=== PATIENT | female | born 1980 | race Caucasian/White ===

== ENCOUNTER 2016-12-05 16:00 | Emergency (ER) | payer OTHER ==
[~2016-12-05] VITALS: Ht 152.4 cm; Wt 45.4 kg
[~2016-12-05 16:00] MED LIST: ACET50TA PO; DOCU10CA PO; IBUP80TA PO; MOM30SS PO; MYLI40DR OR; PRENTAB8 PO; VOLTAREN PR
[2016-12-05] MEDS ORDERED: MULT1TAB10 PO (16:13)
[2016-12-05] MEDS ORDERED: KETOROLAC 30 MG/ML VIAL (J1885) IM ONE (16:30)
--- NOTE | 2016-12-05 19:20 | REPUSA ---
CLINICAL HISTORY: Patient felt "pop" while playing soccer. TECHNIQUE: Realtime sonographic images were obtained in multiple projections. COMMENTS: The area of concern was Sscanned in the left posterior ankle. In the region of clinical concern, the re is a soft tissue defect with fluid, likely blood, measuring 8.7 x 9.3 x 15.3 mm. The findings are compatible with Achilles tendon tear. There are no additional abnormalities noted. IMPRESSION: Findings most compatible with Achilles tendon tear. Consider additional evaluation with MRI. Thank you for your kind referral of this patient. We appreciate the opportunity to participate in th is patient's care.
[2016-12-05] MEDS ORDERED: NAPR500T2 PO (19:55)
[2016-12-05] MEDS ORDERED: TYLE325C PO (19:56)
[2016-12-05 20:07] VITALS: BP 113/75
--- NOTE | 2016-12-06 03:27 | REP ---
Clinical: Posterior pain related to the Achilles tendon. Technique: AP, lateral views of the left ankle. Findings: No acute fracture or dislocation. Skeletal structures and joint spaces are intact and normal. Ankle mortise appears stable. No subcutaneous emphysema or radiodense foreign body. Lateral view demonstrates relatively normal soft tissue and fat planes without obvious evidence for ruptured Achilles tendon. Impression: Normal AP and lateral views of the left ankle. No radiographic evidence to suggest ruptured Achilles tendon. If the patient remains symptomatic consider MRI for further investigation. Signed by Sherif Pruitt MD 12/06/2016 03:19 A
== END 2016-12-05 20:26 | disposition home or self-care (01) ==
LOC: M ED 17:00
DX: S86.012A Strain of left Achilles tendon, initial encounter (principal); X58.XXXA Exposure to other specified factors, initial encounter; Y92.89 Other specified places as the place of occurrence of the external cause; Y93.66 Activity, soccer; Y99.8 Other external cause status; Z88.0 Allergy status to penicillin
CPT/HCPCS: 29515; 73600; 76882; 96372; 99283; J1885

== ENCOUNTER → 2019-07-11 | Outpatient (CLI) | payer OTHER ==
[~2019-07-11] MED LIST changes: -ACET50TA PO; +MAPA500T2 PO; +MULT1TAB10 PO; +NAPR-885 PO; +TYLE325C PO
[2019-07-11 17:47] LABS: BASO # 0.1 10^3/uL (0.0-0.2); BASO % 0.7 % (0.0-1.0); EOS # 0.2 10^3/uL (0.0-0.5); EOS % 3.3 % (0.0-3.0); HEMATOCRIT 40.6 % (36.0-47.0); HEMOGLOBIN 13.1 g/dl (12.0-15.5); LYMPH # 2.6 10^3/uL (1.5-5.0); LYMPH % 37.1 % (24.0-44.0); MEAN CORPUSCULAR HEMOGLOBIN 29.5 pg (27.0-33.0); MEAN CORPUSCULAR HGB CONC 32.3 g/dl (32.0-36.5); MEAN CORPUSCULAR VOLUME 91.4 fl (80.0-96.0); MONO # 0.5 10^3/uL (0.0-0.8); MONO % 7.5 % (0.0-5.0); NEUTROPHILS # 3.6 10^3/uL (1.5-8.5); NEUTROPHILS % 51.1 % (36.0-66.0); PLATELET COUNT, AUTOMATED 278 10^3/uL (150-450); RED BLOOD COUNT 4.44 10^6/uL (4.00-5.40)
[2019-07-11 20:15] LABS: FREE T4 0.91 NG/DL (0.76-1.46); THYROID STIMULATING HORMONE 1.55 uIU/ML (0.358-3.740)
[2019-07-12 00:01] LABS: FOLLICLE STIMULATING HORMONE 4.7 mIU/mL; LUTEINIZING HORMONE 9.7 mIU/mL
== END ==
LOC: M PLALAB 15:42
PROVIDERS: ATTEND Advanced Practice Midwife
DX: N92.0 Excessive and frequent menstruation with regular cycle (principal)
CPT/HCPCS: 36415; 83001; 83002; 84439; 84443; 85025; 87624; G0123

== ENCOUNTER → 2019-07-23 | Outpatient (CLI) | payer OTHER ==
--- NOTE | 2019-07-23 13:31 | REP ---
Clinical: Pelvic pain and abnormal menstrual cycles. Technique: Transabdominal pelvic ultrasound with color Doppler evaluation of the ovaries. Findings: Bladder is unremarkable and measures approximately 10.1 x 9.4 x 6.0 cm. Heterogeneous anteverted uterus measures 7.9 x 3.7 x 4.9 cm. Endometrial complex measures 5.1 mm thickness. No discrete uterine or endometrial abnormalities appreciated. The bilateral ovaries are normal in appearance and vascularity without torsion. Right ovary measures 3.4 x 2.5 x 2.7 cm (RI 0.53). Left ovary measures 2.8 x 1.4 x 2.4 cm (RI 0.62). No pelvic fluid or adnexal mass lesion. Impression: Normal pelvic ultrasound. Electronically Signed by Sherif Pruitt MD 07/23/2019 01:23 P
== END ==
LOC: M RAD 12:56
PROVIDERS: ATTEND Advanced Practice Midwife
DX: N92.0 Excessive and frequent menstruation with regular cycle (principal)

== ENCOUNTER → 2019-08-03 | Outpatient (REF) | payer OTHER | LOC: M LAB REF 18:17 | PROVIDERS: ATTEND Dermatology | DX: D48.5 Neoplasm of uncertain behavior of skin (principal) ==

== ENCOUNTER → 2022-08-11 | Outpatient (REF) | payer OTHER | LOC: M PLALAB 16:30 | PROVIDERS: ATTEND Advanced Practice Midwife | DX: Z12.4 Encounter for screening for malignant neoplasm of cervix (principal) | CPT/HCPCS: 87624; G0123 ==

== ENCOUNTER → 2022-08-26 | Outpatient (CLI) | payer OTHER | LOC: M WHC 14:05 | PROVIDERS: ATTEND Advanced Practice Midwife | DX: N85.00 Endometrial hyperplasia, unspecified (principal); N83.291 Other ovarian cyst, right side; N92.0 Excessive and frequent menstruation with regular cycle; D25.9 Leiomyoma of uterus, unspecified ==

== ENCOUNTER → 2022-09-22 | Outpatient (CLI) | payer OTHER ==
[2022-09-22 13:20] LABS: HEMATOCRIT 38.5 % (36.0-47.0); HEMOGLOBIN 12.6 g/dl (12.0-15.5); MEAN CORPUSCULAR HEMOGLOBIN 29.6 pg (27.0-33.0); MEAN CORPUSCULAR HGB CONC 32.7 g/dl (32.0-36.5); MEAN CORPUSCULAR VOLUME 90.6 fl (80.0-96.0); PLATELET COUNT, AUTOMATED 273 10^3/uL (150-450); RED BLOOD COUNT 4.25 10^6/uL (4.00-5.40); WHITE BLOOD COUNT 4.1 10^3/uL (4.0-10.0)
[2022-09-22 13:53] LABS: THYROID STIMULATING HORMONE 1.5 uIU/ML (0.55-4.78)
[2022-09-22 13:54] LABS: FREE T4 0.94 NG/DL (0.89-1.76)
== END ==
LOC: M PLALAB 09:13
PROVIDERS: ATTEND Advanced Practice Midwife
DX: N92.0 Excessive and frequent menstruation with regular cycle (principal)

== ENCOUNTER → 2022-09-30 | Outpatient (REF) | payer OTHER | LOC: M PLALAB 14:29 | PROVIDERS: ATTEND Advanced Practice Midwife | DX: N92.0 Excessive and frequent menstruation with regular cycle (principal) ==

== ENCOUNTER → 2023-01-20 | Outpatient (REF) | payer OTHER ==
[2023-01-20 18:35] LABS: BASO % 0.3 % (0.0-1.0); EOS % 0.3 % (0.0-3.0); HEMATOCRIT 38.9 % (36.0-47.0); HEMOGLOBIN 12.7 g/dl (12.0-15.5); LYMPH # 0.9 10^3/uL (1.5-5.0); LYMPH % 14.1 % (24.0-44.0); MEAN CORPUSCULAR HEMOGLOBIN 29.3 pg (27.0-33.0); MEAN CORPUSCULAR HGB CONC 32.6 g/dl (32.0-36.5); MEAN CORPUSCULAR VOLUME 89.8 fl (80.0-96.0); MONO # 0.4 10^3/uL (0.0-0.8); NEUTROPHILS # 4.9 10^3/uL (1.5-8.5); PLATELET COUNT, AUTOMATED 273 10^3/uL (150-450); RED BLOOD COUNT 4.33 10^6/uL (4.00-5.40); WHITE BLOOD COUNT 6.3 10^3/uL (4.0-10.0)
[2023-01-20 19:06] LABS: MONO SCRN NEGATIVE (NEGATIVE)
== END ==
LOC: M LAB REF 17:30
PROVIDERS: ATTEND Physician Assistant
DX: R53.83 Other fatigue (principal)

== ENCOUNTER 2023-07-15 09:02 | Day surgery (SDC) | payer OTHER ==
[~2023-07-15] VITALS: Ht 152.4 cm; Wt 45.4 kg
[~2023-07-15 09:02] MED LIST changes: +KETOROLAC 60MG 2ML VIAL As Ordered ONE; +LIDOCAINE 2% 100MG/5ML SDV (FOR ANES.) As Ordered ONE; +MIDAZOLAM INJ 2MG/2ML VIAL As Ordered ONE; +ONDANSETRON 4MG 2ML VIAL As Ordered ONE; +ROCURONIUM BROMIDE 50MG/5ML VIAL As Ordered ONE; +SUGAMMADEX SODIUM 500 MG/5 ML VIAL (BRIDION) As Ordered ONE; +THERTAB52 PO; +fentaNYL 250 MCG/5 ML INJECTION As Ordered ONE; +propofoL 200 MG/20 ML VIAL As Ordered ONE
[2023-07-15 09:27] LABS: HEMATOCRIT 39.2 % (36.0-47.0); HEMOGLOBIN 13.4 g/dl (12.0-15.5); MEAN CORPUSCULAR HEMOGLOBIN 30.9 pg (27.0-33.0); MEAN CORPUSCULAR HGB CONC 34.2 g/dl (32.0-36.5); MEAN CORPUSCULAR VOLUME 90.3 fl (80.0-96.0); PLATELET COUNT, AUTOMATED 276 10^3/uL (150-450); RED BLOOD COUNT 4.34 10^6/uL (4.00-5.40); WHITE BLOOD COUNT 4.5 10^3/uL (4.0-10.0)
[2023-07-15] MEDS ORDERED: LR 1,000 ML IV SCH ×3 (09:30→13:05)
[2023-07-15] MEDS ORDERED: ceFAZolin 2 GM/D5W 50 ML IV BAG As Ordered ONE (10:33)
[2023-07-15] MEDS ORDERED: ACETAMINOPHEN 1000MG 100ML IV BAG As Ordered ONE (10:42)
[2023-07-15] MEDS ORDERED: ceFAZolin SOD 2 GM in IV 1 EA IV ONE (11:00)
[2023-07-15] MEDS ORDERED: ONDANSETRON 4MG 2ML VIAL IV PRN (12:20)
[2023-07-15] MEDS ORDERED: fentaNYL 100 MCG/2 ML INJECTION IV PRN (12:20)
[2023-07-15] MEDS ORDERED: oxyCODONE 5MG TAB PO PRN (12:20)
[2023-07-15] MEDS ORDERED: IBUP-1022 PO (12:50)
[2023-07-15] MEDS ORDERED: OXYC1TAB23 PO (12:54)
[2023-07-15] MEDS ORDERED: PERCOCET 5MG/325MG TAB PO PRN (13:05)
[2023-07-15] MEDS: HYDROMORPHONE HCL 0.5 MG/ 0.5 ML SYRINGE IV PRN ×2 (13:18→13:23)
[2023-07-15 14:50] VITALS: BP 126/73; TEMP 97.9; O2SAT 99
== END 2023-07-15 14:50 | disposition home or self-care (01) ==
LOC: M SDC 09:02
PROVIDERS: ATTEND Specialist
DX: N92.1 Excessive and frequent menstruation with irregular cycle (principal); N83.8 Other noninflammatory disorders of ovary, fallopian tube and broad ligament
CPT/HCPCS: 36415; 58571; 81025; 85027; 86850; 86900; 86901; 88307; J0131; J0665; J0690; J1100; J1170; J1885; J2250; J2405; J3010; S2900

== ENCOUNTER → 2023-10-28 | Outpatient (CLI) | payer OTHER ==
[~2023-10-28] MED LIST changes: +IBUP-1022 PO; -KETOROLAC 60MG 2ML VIAL As Ordered ONE; -LIDOCAINE 2% 100MG/5ML SDV (FOR ANES.) As Ordered ONE; -MIDAZOLAM INJ 2MG/2ML VIAL As Ordered ONE; -ONDANSETRON 4MG 2ML VIAL As Ordered ONE; +OXYC1TAB23 PO; -ROCURONIUM BROMIDE 50MG/5ML VIAL As Ordered ONE; -SUGAMMADEX SODIUM 500 MG/5 ML VIAL (BRIDION) As Ordered ONE; -fentaNYL 250 MCG/5 ML INJECTION As Ordered ONE; -propofoL 200 MG/20 ML VIAL As Ordered ONE
[2023-10-28 13:46] LABS: BASO % 0.7 % (0.0-1.0); EOS # 0.1 10^3/uL (0.0-0.5); EOS % 2.6 % (0.0-3.0); HEMATOCRIT 40.5 % (36.0-47.0); HEMOGLOBIN 13.7 g/dl (12.0-15.5); LYMPH # 1.8 10^3/uL (1.5-5.0); LYMPH % 43.2 % (24.0-44.0); MEAN CORPUSCULAR HEMOGLOBIN 31.6 pg (27.0-33.0); MEAN CORPUSCULAR HGB CONC 33.8 g/dl (32.0-36.5); MEAN CORPUSCULAR VOLUME 93.5 fl (80.0-96.0); MONO # 0.3 10^3/uL (0.0-0.8); MONO % 6.4 % (2.0-8.0); NEUTROPHILS % 47.1 % (36.0-66.0); PLATELET COUNT, AUTOMATED 316 10^3/uL (150-450); RED BLOOD COUNT 4.33 10^6/uL (4.00-5.40); WHITE BLOOD COUNT 4.2 10^3/uL (4.0-10.0)
[2023-10-28 13:53] LABS: ERYTHROCYTE SEDIMENTATION RATE 1 mm/hr (0-20)
[2023-10-28 13:58] LABS: C REACTIVE PROTEIN QUANTITATIV < 0.40 MG/DL (<1.0)
[2023-10-28 13:59] LABS: ALBUMIN 3.8 G/DL (3.2-5.2); ALKALINE PHOSPHATASE 61 U/L (46-116); ALT/SGPT 24 U/L (7.0-40); AST/SGOT 19 U/L (<34); BILIRUBIN,TOTAL 0.5 MG/DL (0.3-1.2); BLOOD UREA NITROGEN 8 MG/DL (9-23); CALCIUM LEVEL 9.6 MG/DL (8.5-10.1); CARBON DIOXIDE LEVEL 30 MMOL/L (20-31); CHLORIDE LEVEL 104 MMOL/L (98-107); CHOLESTEROL LEVEL 169 MG/DL (<200); CHOLESTEROL RISK RATIO 3.68 (<5); CREATININE FOR GFR 0.69 MG/DL (0.55-1.30); GLOMERULAR FILTRATION RATE > 60.0 (>58); GLUCOSE, FASTING 88 MG/DL (60-100); HDL CHOLESTEROL 45.8 MG/DL (>40); IRON (FE) 76 UG/DL (50-170); LDL CHOLESTEROL 89.4 MG/DL (<100); MAGNESIUM LEVEL 2.1 MG/DL (1.8-2.4); NON-HDL-C 123.2 MG/DL; PERCENT SATURATION 20.9 % (13.2-45.0); POTASSIUM SERUM 3.8 MMOL/L (3.5-5.1); SODIUM LEVEL 138 MMOL/L (136-145); TOTAL IRON BINDING CAPACITY 363 UG/DL (250-425); TOTAL PROTEIN 6.9 G/DL (5.7-8.2); TRIGLYCERIDES LEVEL 169 MG/DL (<150)
[2023-10-28 14:02] LABS: THYROID STIMULATING HORMONE 1.061 uIU/ML (0.55-4.78)
[2023-10-28 14:03] LABS: FERRITIN 8.7 NG/ML (7.3-270.7); FOLATE > 24.0 NG/ML (>5.4); TOTAL 25(OH) VITAMIN D 18.8 NG/ML (20.0-100.0); VITAMIN B12 LEVEL 879 PG/ML (211-911)
[2023-10-28 14:04] LABS: FREE T4 1.04 NG/DL (0.89-1.76)
[2023-10-29 19:07] LABS: ANTINUCLEAR ANTIBODIES DIRECT Negative (Negative); TISSUE TRANSGLUTAMINASE IgA <2 U/mL (0-3); TISSUE TRANSGLUTAMINASE IgG <2 U/mL (0-5)
== END ==
LOC: M PLALAB 10:08
PROVIDERS: ATTEND Registered Nurse
DX: K58.2 Mixed irritable bowel syndrome (principal); R53.83 Other fatigue; M25.59 Pain in other specified joint

== ENCOUNTER → 2024-05-23 | Outpatient (CLI) | payer OTHER ==
[2024-05-23 16:00] LABS: HEPATITIS B SURFACE ANTIGEN NEGATIVE (NEGATIVE)
[2024-05-23 16:22] LABS: HEPATITIS B CORE ANTIBODY IGM NEGATIVE (NEGATIVE); HEPATITIS C VIRUS ABY INDEX < 0.02 INDEX (<0.8)
== END ==
LOC: M PLALAB 13:14
PROVIDERS: ATTEND Registered Nurse
DX: Z20.5 Contact with and (suspected) exposure to viral hepatitis (principal)

== ENCOUNTER → 2024-10-23 | Outpatient (CLI) | payer OTHER ==
[2024-10-23 15:05] LABS: BASO % 0.7 % (0.0-1.0); EOS # 0.1 10^3/uL (0.0-0.5); EOS % 2.2 % (0.0-3.0); HEMATOCRIT 44.1 % (36.0-47.0); HEMOGLOBIN 15.1 g/dl (12.0-15.5); MEAN CORPUSCULAR HEMOGLOBIN 32.3 pg (27.0-33.0); MEAN CORPUSCULAR HGB CONC 34.2 g/dl (32.0-36.5); MEAN CORPUSCULAR VOLUME 94.2 fl (80.0-96.0); MONO # 0.4 10^3/uL (0.0-0.8); MONO % 7.5 % (2.0-8.0); NEUTROPHILS # 2.9 10^3/uL (1.5-8.5); NEUTROPHILS % 53.4 % (36.0-66.0); PLATELET COUNT, AUTOMATED 305 10^3/uL (150-450); RED BLOOD COUNT 4.68 10^6/uL (4.00-5.40); WHITE BLOOD COUNT 5.5 10^3/uL (4.0-10.0)
[2024-10-23 15:13] LABS: ALBUMIN 4.3 G/DL (3.2-5.2); ALKALINE PHOSPHATASE 60 U/L (35-104); ALT/SGPT 20 U/L (7.0-40); AST/SGOT 19 U/L (<34); BILIRUBIN,TOTAL 0.6 MG/DL (0.3-1.2); BLOOD UREA NITROGEN 9 MG/DL (9-23); CALCIUM LEVEL 10.5 MG/DL (8.5-10.1); CARBON DIOXIDE LEVEL 29 MMOL/L (20-31); CHLORIDE LEVEL 106 MMOL/L (98-107); CHOLESTEROL LEVEL 187 MG/DL (<200); CHOLESTEROL RISK RATIO 3.89 (<5); CREATININE FOR GFR 0.69 MG/DL (0.55-1.30); GLOMERULAR FILTRATION RATE > 60.0 (>58); GLUCOSE, FASTING 91 MG/DL (60-100); LDL CHOLESTEROL 108.4 MG/DL (<100); POTASSIUM SERUM 4.4 MMOL/L (3.5-5.1); SODIUM LEVEL 143 MMOL/L (136-145); TOTAL PROTEIN 7.7 G/DL (5.7-8.2); TRIGLYCERIDES LEVEL 153 MG/DL (<150)
== END ==
LOC: M PLALAB 09:45
PROVIDERS: ATTEND Registered Nurse
DX: Z00.00 Encounter for general adult medical examination without abnormal findings (principal)

== ENCOUNTER → 2024-11-07 | Outpatient (CLI) | payer OTHER ==
[2024-11-07 17:46] LABS: IONIZED CALCIUM 4.6 MG/DL (4.5-5.3)
[2024-11-07 18:21] LABS: TOTAL 25(OH) VITAMIN D 24.7 NG/ML (20.0-100.0)
[2024-11-07 18:22] LABS: FREE T4 1.06 NG/DL (0.89-1.76)
[2024-11-07 18:26] LABS: BLOOD UREA NITROGEN 8 MG/DL (9-23); CALCIUM LEVEL 8.6 MG/DL (8.5-10.1); CARBON DIOXIDE LEVEL 27 MMOL/L (20-31); CHLORIDE LEVEL 107 MMOL/L (98-107); CREATININE FOR GFR 0.63 MG/DL (0.55-1.30); GLOMERULAR FILTRATION RATE > 90.0 (>58); GLUCOSE, FASTING 107 MG/DL (60-100); POTASSIUM SERUM 3.3 MMOL/L (3.5-5.1); PTH INTACT 62.8 PG/ML (18.5-88.0); SODIUM LEVEL 141 MMOL/L (136-145); THYROID STIMULATING HORMONE 1.763 uIU/ML (0.55-4.78)
== END ==
LOC: M LAB 17:19
PROVIDERS: ATTEND Nurse Practitioner Family
DX: E83.52 Hypercalcemia (principal)

== ENCOUNTER → 2025-04-29 | Outpatient (CLI) | payer OTHER ==
[~2025-04-29] MED LIST changes: -IBUP-1022 PO; +IBUP600T42 PO; +ISOVUE-370 76% 100 ML VIAL As Ordered ONE
== END ==
LOC: M RAD 16:32
PROVIDERS: ATTEND Internal Medicine Gastroenterology
DX: R10.30 Lower abdominal pain, unspecified (principal); K80.20 Calculus of gallbladder without cholecystitis without obstruction; K86.2 Cyst of pancreas; N20.0 Calculus of kidney
CPT/HCPCS: 74177; Q9967

== ENCOUNTER → 2025-06-19 | Outpatient (CLI) | payer OTHER ==
[~2025-06-19] MED LIST changes: -ISOVUE-370 76% 100 ML VIAL As Ordered ONE; +PROHANCE 279.3MG/ML 5ML VIAL ONE
== END ==
LOC: M PLAIMG 15:35
PROVIDERS: ATTEND Internal Medicine Gastroenterology
DX: R10.30 Lower abdominal pain, unspecified (principal); K58.0 Irritable bowel syndrome with diarrhea; R14.0 Abdominal distension (gaseous)
CPT/HCPCS: 74183; A9579